=== PATIENT | male | born 1965 | race Caucasian/White ===

== ENCOUNTER 2016-09-21 15:26 | Emergency (ER) | payer SELFPAY ==
[~2016-09-21] VITALS: Ht 177.8 cm; Wt 101.1 kg
[2016-09-21 15:33] VITALS: Ht 177.8 cm; Wt 101.1 kg
[2016-09-21] MEDS ORDERED: SOD CHLORIDE 0.9% 1,000 ML IV ONE (16:30)
[2016-09-21] MEDS ORDERED: METOCLOPRAMIDE 10 MG INJ IV ONE (16:30)
[2016-09-21] MEDS ORDERED: TETRACAINE 0.5% 4 ML OPH LEFT EYE ONE (16:30)
[2016-09-21] MEDS ORDERED: DIPHENHYDRAMINE 50 MG INJ IV ONE (16:30)
[2016-09-21 16:59] LABS: ADD SCAN DIFF NO
[2016-09-21 17:02] LABS: BASOPHILS % 0.4 % (0.0-2.0); EOSINOPHILS # 0.3 10^3/ul (0.0-0.5); EOSINOPHILS % 4.8 % (0.0-7.0); HEMATOCRIT 44.6 % (42.0-52.0); LYMPHOCYTES % 17.7 % (15.0-51.0); MEAN CORPUSCULAR HEMOGLOBIN 31.3 pg (29.0-33.0); MEAN CORPUSCULAR HGB CONC 33.6 g/dl (32.0-37.0); MEAN CORPUSCULAR VOLUME 92.9 fl (82.0-101.0); MEAN PLATELET VOLUME 10.9 fl (7.4-10.4); MONOCYTE # 0.3 10^3/ul (0.3-0.9); MONOCYTES % 4.8 % (0.0-11.0); NEUTROPHIL # 3.9 10^3/ul (1.6-7.5); NEUTROPHILS % 72.1 % (39.0-77.0); PLATELET COUNT 163 10^3/UL (140-415); RED CELL DISTRIBUTION WIDTH 12.2 % (11.5-14.5); WHITE BLOOD COUNT 5.4 10^3/ul (4.8-10.8)
[2016-09-21 17:12] LABS: ALBUMIN 3.7 g/dl (3.3-4.9)
[2016-09-21 17:13] LABS: POTASSIUM 4.4 mmol/L (3.5-5.1)
[2016-09-21 17:15] LABS: ALBUMIN/GLOBULIN RATIO 1.02; BILIRUBIN,INDIRECT 0.2 mg/dl (0-1.1); BILIRUBIN,TOTAL 0.2 mg/dl (0.2-1.3); CREATININE 1.09 mg/dl (0.61-1.24); TOTAL PROTEIN 7.3 g/dl (6.1-8.1)
[2016-09-21 17:16] LABS: CALCIUM 9.7 mg/dl (8.4-10.2)
--- NOTE | 2016-09-21 17:39 | RADRPT ---
PROCEDURE: CT brain without contrast CLINICAL INDICATION: Headache TECHNIQUE: CT of the brain without contrast was performed on a multidetector CT scanner, with multi planar reformats. One or more of the following dose reduction techniques were used: Automated expos ure control, adjustment in mA and / or kV according to patient size, use of iterative reconstructive technique. CTDIvol = 44 mGy; DLP = 720 mGy-cm. COMPARISON: None available FINDINGS: No acute intracranial hemorrhage is identified. No extra-axial fluid collection is seen. There is no mass effect. No midline shift is identified. Ventricles and sulci are within normal limits for size and configuration. The density of the brain is within normal limits. Jackson-white differentiation is preserved. Osseous structures are unremarkable. Mastoid air cells and imaged paranasal sinuses grossly clear. IMPRESSION: Unremarkable noncontrast CT of the brain. RPTAT: VV .Tavares Pérez MD, Date Time Electronically viewed and signed by .Tavares Pérez MD, MD on 09/21/2016 17:39 .O/
--- NOTE | 2016-09-21 17:57 | RADRPT ---
PROCEDURE: CT cervical spine without contrast. CLINICAL INDICATION: Neck pain TECHNIQUE: CT of the cervical spine without contrast was performed on a multidetector CT scanner, w ith multiplanar reformats. One or more of the following dose reduction techniques were used: Automa rama exposure control, adjustment in mA and / or kV according to patient size, use of iterative recon structive technique. CTDIvol = 22 mGy and DLP = 502 mGy-cm. COMPARISON: None available. FINDINGS: No fracture or dislocation is identified. There is straightening of the lordosis of the cervical sp ine. Alignment is intact. The vertebral bodies are maintained in height. There are anterior atla ntoaxial joint degenerative changes, multilevel anterior spondylosis. Intervertebral disk spaces ar e maintained in height. C2-3: There is a mild posterior disk osteophyte. No central canal stenosis is identified. There i s facet arthropathy without foraminal narrowing identified. C3-4: There is a mild posterior disk osteophyte. No central canal stenosis is identified. There i s facet arthropathy with mild left foraminal narrowing. C4-5: There is mild posterior disk osteophyte. No central canal stenosis is identified. There is facet arthropathy without foraminal narrowing identified.. C5-6: No gross disk bulge or herniation is seen. No central canal stenosis is identified. There i s facet arthropathy without foraminal narrowing identified. C6-7: No gross disk bulge or herniation is seen. No central canal stenosis is identified. There is facet arthropathy without foraminal narrowing identified. C7-T1: No gross disk bulge or herniation is seen. No central canal stenosis is identified. There is facet arthropathy with mild bilateral foraminal narrowing. The adenoids and palatine tonsils are enlarged. There are scattered lymph nodes in the neck bilater ally seen along the bilateral internal jugular chains and posterior cervical triangles, which do not meet size criteria but are nonspecific in appearance. IMPRESSION: 1. Straightening of the cervical lordosis, without fracture - dislocation identified. 2. Cervical spondylosis without central canal stenosis identified. Mild foraminal narrowing detail ed above. 3. Enlarged adenoids/tonsils and nonspecific bilateral cervical nodes. Findings may be reactive, b ut lymphoproliferative/neoplastic process is not excluded. Correlate clinically. RPTAT: VV .Tavares Pérez MD, MD Date Time Electronically viewed and signed by .Tavares Pérez MD, on 09/21/2016 17:57 .O/
[2016-09-21 18:38] LABS: ADD UMIC YES; URINE BILIRUBIN (Dip) NEGATIVE (NEGATIVE); URINE BLOOD (Dip) TRACE (NEGATIVE); URINE COLOR LT. YELLOW (YELLOW); URINE GLUCOSE (Dip) NEGATIVE (NEGATIVE); URINE KETONES (Dip) NEGATIVE (NEGATIVE); URINE LEUKOCYTE ESTERASE (Dip) NEGATIVE (NEGATIVE); URINE NITRITE (Dip) NEGATIVE (NEGATIVE); URINE TOTAL PROTEIN (Dip) TRACE (NEGATIVE); URINE UROBILINOGEN (Dip) 0.2 E.U./dL (0.1-1.0)
[2016-09-21 18:43] LABS: URINE RBCS 0-2 /HPF (0)
[2016-09-21 18:44] LABS: TRANSITIONAL EPI CELLS,URINE OCCASIONAL
[2016-09-21] MEDS ORDERED: NAPR-260 PO (19:24)
[2016-09-21 19:32] VITALS: BP 150/102; PULSE 82; RESP 18; TEMP 98.1
--- NOTE | 2016-09-22 00:11 | ERD ---
ER Documentation Chief Complaint Date/Time DATE: 09/22/16 TIME: 00:07 Chief Complaint back rad right leg, eye pain HPI 51-year-old male with a past medical history of diabetes presents the ED complaining of left-sided headache and facial pain as well as neck pain that started 5 days ago. States that he also has right buttocks pain that radiates down to his right leg. Reports that he has some left-sided eye pain. States that he wears glasses but denies wearing contacts. Denies any fever, chills, abdominal pain, chest pain, vomiting, shortness of breath, cough, rhinorrhea, rashes. Denies any sick contacts. ROS All systems reviewed and are negative except as per history of present illness. Medications Home Meds Active Scripts Naproxen* (Naprosyn*) 500 Mg Tablet, 500 MG PO BID Y for PAIN AND/OR INFLAMMATION, #30 TAB take with food Prov:RASHMI LONG PA-C 09/21/16 Allergies Allergies: Coded Allergies: No Known Allergy (Unverified , 09/21/16) PMhx/Soc History of Surgery: No Anesthesia Reaction: No Hx Neurological Disorder: No Hx Respiratory Disorders: No Hx Cardiac Disorders: No Hx Psychiatric Problems: No Hx Miscellaneous Medical Probl: Yes (DIABETES) Hx Alcohol Use: No Hx Substance Use: No Hx Tobacco Use: No Smoking Status: Unknown if ever smoked Physical Exam Vitals Vital Signs Date Time Temp Pulse Resp B/P Pulse Ox O2 Delivery O2 Flow Rate FiO2 09/21/16 19:32 98.1 82 18 150/102 99 Room Air 09/21/16 15:33 98.1 84 18 150/90 99 Physical Exam Const: [id number], well-nourished. In no acute distress. Head: Atraumatic, normocephalic Eyes: Normal Conjunctiva without injection. No purulent discharge. PERRLA. EOMI ENT: Normal external ear. Ear canal without erythema. Tympanic membrane pearly jackson without effusion or bulging. Nasal canal clear with normal turbinates. Moist oropharynx without tonsillar exudates. Non-erythematous pharynx. Uvula midline. No drooling. No trismus. Neck: No cervical midline tenderness. Full range of motion. No meningismus. No cervical lymphadenopathy. No JVD. Resp: Clear to auscultation bilaterally. No wheezing, rhonchi, rales, or crackles. No accessory muscle use. No retractions. Cardio: Regular rate and rhythm. No murmurs, rubs or gallops. Abd: Soft, non tender, non distended. Normal bowel sounds. No palpable masses. No rebound tenderness. No guarding. Negative McBurney's Point. Negative Barr's Sign. Skin: Normal skin turgor. No petechiae or rashes Back: No midline tenderness. No CVA tenderness. Ext: No cyanosis, or edema. Distal pulses intact bilaterally. Neur: Awake and alert. Normal gait. Normal coordination. Cranial Nerves II- VII intact. Normal finger to nose. Muscle strength 5/5. Sensation intact. Psych: Normal Mood and Affect Result Diagram: 09/21/16 1647 09/21/16 1647 Results 24 hrs Laboratory Tests Test 09/21/16 16:47 09/21/16 18:15 White Blood Count 5.410^3/ul Red Blood Count 4.8010^6/ul Hemoglobin 15.0g/dl Hematocrit 44.6% Mean Corpuscular Volume 92.9fl Mean Corpuscular Hemoglobin 31.3pg Mean Corpuscular Hemoglobin Concent 33.6g/dl Red Cell Distribution Width 12.2% Platelet Count 95321^3/UL Mean Platelet Volume 10.9fl Neutrophils % 72.1% Lymphocytes % 17.7% Monocytes % 4.8% Eosinophils % 4.8% Basophils % 0.4% Nucleated Red Blood Cells % 0.0/100WBC Neutrophils # 3.910^3/ul Lymphocytes # 1.010^3/ul Monocytes # 0.310^3/ul Eosinophils # 0.310^3/ul Basophils # 0.010^3/ul Nucleated Red Blood Cells # 0.010^3/ul Sodium Level 139mmol/L Potassium Level 4.4mmol/L Chloride Level 103mmol/L Carbon Dioxide Level 27mmol/L Anion Gap 13 Blood Urea Nitrogen 16mg/dl Creatinine 1.09mg/dl Glucose Level 204mg/dl Calcium Level 9.7mg/dl Total Bilirubin 0.2mg/dl Direct Bilirubin 0.00mg/dl Indirect Bilirubin 0.2mg/dl Aspartate Amino Transf (AST/SGOT) 17IU/L Alanine Aminotransferase (ALT/SGPT) 21IU/L Alkaline Phosphatase 92IU/L Total Protein 7.3g/dl Albumin 3.7g/dl Globulin 3.60g/dl Albumin/Globulin Ratio 1.02 Lipase 144U/L Urine Color LT. YELLOW Urine Clarity CLEAR Urine pH 5.5 Urine Specific [place] <=1.005 Urine Ketones NEGATIVE Urine Nitrite NEGATIVE Urine Bilirubin NEGATIVE Urine Urobilinogen 0.2 E.U./dL Urine Leukocyte Esterase NEGATIVE Urine Microscopic RBC 0-2/HPF Urine Microscopic WBC NONE SEEN/HPF Urine Transitional Epithelial Cells OCCASIONAL Urine Hemoglobin TRACE Urine Glucose NEGATIVE% Urine Total Protein TRACE Current Medications Medications (Trade) Dose Ordered Sig/Yoan Route PRN Reason Start Time Stop Time Status Last Admin Dose Admin Tetracaine HCl 1 drop 1 drop ONCE ONCE LEFT EYE 09/21/16 16:30 09/21/16 16:31 DC 09/21/16 16:42 Sodium Chloride (NS) 1,000 ml @ 1,000 mls/hr Q1H ONCE IV 09/21/16 16:30 09/21/16 17:29 DC 09/21/16 16:41 Metoclopramide HCl (Reglan) 10 mg ONCE ONCE IV 09/21/16 16:30 09/21/16 16:31 DC 09/21/16 16:41 Diphenhydramine HCl (Benadryl) 25 mg ONCE ONCE IV 09/21/16 16:30 09/21/16 16:31 DC 09/21/16 16:41 Procedures/MDM This is a 51-year-old male with no significant past medical history presents the ED complaining of left-sided facial, headache, neck pain as well as right lower leg pain. Patient is afebrile and nontoxic-appearing. A CT of the brain without contrast, CBC, CMP, lipase, urinalysis was ordered to further evaluate patient. Patient was given 10 mg IV Reglan, 25 mg IV Benadryl, 1 L normal saline with improvement of his pain. CBC: No leukocytosis. No e/o of systemic infection. No e/o anemia. CMP: No e/o severe acidosis, alkalosis, renal failure, diabetic ketoacidosis, liver disease Lipase within normal limits. Urine: No leukocyte esterase, no nitrites, no hematuria. PROCEDURE: CT cervical spine without contrast. CLINICAL INDICATION: Neck pain TECHNIQUE: CT of the cervical spine without contrast was performed on a multidetector CT scanner, with multiplanar reformats. One or more of the following dose reduction techniques were used: Automated exposure control, adjustment in mA and / or kV according to patient size, use of iterative reconstructive technique. CTDIvol = 22 mGy and DLP = 502 mGy-cm. COMPARISON: None available. FINDINGS: No fracture or dislocation is identified. There is straightening of the lordosis of the cervical spine. Alignment is intact. The vertebral bodies are maintained in height. There are anterior atlantoaxial joint degenerative changes, multilevel anterior spondylosis. Intervertebral disk spaces are maintained in height. C2-3: There is a mild posterior disk osteophyte. No central canal stenosis is identified. There is facet arthropathy without foraminal narrowing identified. C3-4: There is a mild posterior disk osteophyte. No central canal stenosis is identified. There is facet arthropathy with mild left foraminal narrowing. C4-5: There is mild posterior disk osteophyte. No central canal stenosis is identified. There is facet arthropathy without foraminal narrowing identified.. C5-6: No gross disk bulge or herniation is seen. No central canal stenosis is identified. There is facet arthropathy without foraminal narrowing identified. C6-7: No gross disk bulge or herniation is seen. No central canal stenosis is identified. There is facet arthropathy without foraminal narrowing identified. C7-T1: No gross disk bulge or herniation is seen. No central canal stenosis is identified. There is facet arthropathy with mild bilateral foraminal narrowing. The adenoids and palatine tonsils are enlarged. There are scattered lymph nodes in the neck bilaterally seen along the bilateral internal jugular chains and posterior cervical triangles, which do not meet size criteria but are nonspecific in appearance. IMPRESSION: 1. Straightening of the cervical lordosis, without fracture - dislocation identified. 2. Cervical spondylosis without central canal stenosis identified. Mild foraminal narrowing detailed above. 3. Enlarged adenoids/tonsils and nonspecific bilateral cervical nodes. Findings may be reactive, but lymphoproliferative/neoplastic process is not excluded. Correlate clinically. PROCEDURE: CT brain without contrast CLINICAL INDICATION: Headache TECHNIQUE: CT of the brain without contrast was performed on a multidetector CT scanner, with multiplanar reformats. One or more of the following dose reduction techniques were used: Automated exposure control, adjustment in mA and / or kV according to patient size, use of iterative reconstructive technique. CTDIvol = 44 mGy; DLP = 720 mGy-cm. COMPARISON: None available FINDINGS: No acute intracranial hemorrhage is identified. No extra-axial fluid collection is seen. There is no mass effect. No midline shift is identified. Ventricles and sulci are within normal limits for size and configuration. The density of the brain is within normal limits. Jackson-white differentiation is preserved. Osseous structures are unremarkable. Mastoid air cells and imaged paranasal sinuses grossly clear. IMPRESSION: Unremarkable noncontrast CT of the brain. Eye Exam w/ Wood's lamp: Visual Acuity: [20/40 L 20/50 R 20/40 Bilaterally] Visual Valdes: Intact in all four quadrants bilaterally Lac ducts/glands: No swelling Lids w/ evertion: Normal, no foreign body Conj/[place]: Clear, negative Fluorescein/[place]og[place]'s Anterior Chamber: Clear Tonopen readings: 24 mmHg bilaterally Patient likely has arthritis and cervical radiculopathy noted on the CT of the neck. There is low suspicion for intercranial bleed, subarachnoid hemorrhage, subdural hematoma, epidural hematoma, meningitis, TIA, stroke, other emergent conditions. Discharge medications: Naproxen Follow up with primary care physician in 1-2 days. Instructed patient to return to the ED sooner for any worsening symptoms. Patient's questions were answered. Patient understood and agreed with discharge plan. Patient discharged stable. Departure Diagnosis: Primary Impression: Headache Headache type: unspecified Headache chronicity pattern: acute headache Intractability: not intractable Qualified Code: R51 - Acute nonintractable headache, unspecified headache type Additional Impressions: Right leg pain Neck pain Condition: Stable Patient Instructions: Headache, Unspecified, Neck Pain, No Trauma, Back Pain W / Sciatica Referrals: [facility] YOU HAVE RECEIVED A MEDICAL SCREENING EXAM AND THE RESULTS INDICATE THAT YOU DO NOT HAVE A CONDITION THAT REQUIRES URGENT TREATMENT IN THE EMERGENCY DEPARTMENT. FURTHER EVALUATION AND TREATMENT OF YOUR CONDITION CAN WAIT UNTIL YOU ARE SEEN IN YOUR DOCTORS OFFICE WITHIN THE NEXT 1-2 DAYS. IT IS YOUR RESPONSIBILITY TO MAKE AN APPOINTMENT FOR FOLOW-UP CARE. IF YOU HAVE A PRIMARY DOCTOR --you should call your primary doctor and schedule an appointment IF YOU DO NOT HAVE A PRIMARY DOCTOR YOU CAN CALL OUR PHYSICIAN REFERRAL HOTLINE AT IF YOU CAN NOT AFFORD TO SEE A PHYSICIAN YOU CAN CHOSE FROM THE FOLLOWING [facility] CLINICS [facility] [address] [facility] [address] [facility] [address] [facility] [address] [facility] [address] [facility]. [facility] [address] [facility]. [facility] YOU HAVE RECEIVED A MEDICAL SCREENING EXAM AND THE RESULTS INDICATE THAT YOU DO NOT HAVE A CONDITION THAT REQUIRES URGENT TREATMENT IN THE EMERGENCY DEPARTMENT. FURTHER EVALUATION AND TREATMENT OF YOUR CONDITION CAN WAIT UNTIL YOU ARE SEEN IN YOUR DOCTORS OFFICE WITHIN THE NEXT 1-2 DAYS. IT IS YOUR RESPONSIBILITY TO MAKE AN APPOINTMENT FOR FOLOW-UP CARE. IF YOU HAVE A PRIMARY DOCTOR --you should call your primary doctor and schedule and appointment IF YOU DO NOT HAVE A PRIMARY DOCTOR YOU CAN CALL OUR PHYSICIAN REFERRAL HOTLINE AT . IF YOU CAN NOT AFFORD TO SEE A PHYSICIAN YOU CAN CHOSE FROM THE FOLLOWING [facility] INSTITUTIONS: [facility] [address] [place] [address] [facility] [address] [place], [place] [id number] [place] [address] [address] [place] [address] [facility] Hours: Mon - Fri 9:00 AM - 5:00 PM Additional Instructions: Llame al doctor MAANA y karine elyssa LUIS PARA DENTRO DE 1-2 APODACA.Dgale a la secretaria que nosotros le instruimos hacer esta luis.Avise o llame si youngblood condicin se empeora antes de la luis. Regresa aqui si peor o no mejor. RASHMI LONG PA-C Sep 22, 2016 00:10
== END 2016-09-21 19:34 | disposition home or self-care (01) ==
LOC: FTE 15:26
DX: R51 Headache (principal); M79.604 Pain in right leg; M54.2 Cervicalgia; E11.9 Type 2 diabetes mellitus without complications
CPT/HCPCS: 70450; 72125; 80053; 81001; 83690; 85025; 96374; 96375; 99285; J1200; J2765; J7030; 81003